=== PATIENT | male | born 1995 | race Caucasian/White ===

== ENCOUNTER 2016-07-23 02:44 | Emergency (ER) | payer BC, OTHER ==
[~2016-07-23] VITALS: Ht 180.3 cm; Wt 84.0 kg
[2016-07-23 02:44] VITALS: O2SAT 98
[2016-07-23 02:54] VITALS: TEMP 36.4; Ht 180.3 cm; Wt 84.0 kg
--- NOTE | 2016-07-23 03:02 | EMERGENCY ROOM VISIT NOTE ---
History Report prepared by Yosvanyibkaylah: Rosio Faith Under the Supervision of: Dr. Elizabeth Herrera M.D. First contact with patient: 02:46 Chief Complaint: CHEST PAIN Stated Complaint: CHEST PAIN History of Present Illness The patient is a 20 year old male who presents to the Emergency Room with complaints of persistent central chest pain that began this morning. The patient states that the pain began suddenly when he stood up and is described as sharp. He also complains of dizziness. The patient had a similar pain about 8 -9 years ago and had an unrevealing work-up. He denies any heavy lifting at work. Denies cough, cold, fever, abdominal pain or other complaints. The patient has diabetes and uses an insulin pen. His blood sugars have been normal recently. His sugar about 4 hours ago was around 170. He ate some peanut butter crackers before he went to work. Source of History: patient Onset: this morning Position: chest (central) Quality: sharp Timing: other (persistent) Associated Symptoms: No cough, No fevers Note: Other symptoms: dizziness Review of Systems See HPI for pertinent positives & negatives. A total of 10 systems reviewed and were otherwise negative. Past Medical & Surgical Medical Problems: (1) Diabetes Family History No pertinent family history stated. Social History Occupation Status: employed Current/Historical Medications Scheduled Insulin Detemir (Levemir Flextouch), 30 UNITS SQ HS Insulin Lispro (Human) (Humalog Kwikpen), SQ AC Omeprazole (Prilosec), 20 MG PO DAILY Physical Exam Vital Signs Date Time Temp Pulse Resp B/P Pulse Ox O2 Delivery O2 Flow Rate FiO2 07/23/16 06:37 82 20 148/71 97 Room Air 07/23/16 06:06 80 07/23/16 05:22 84 18 142/71 98 Room Air 07/23/16 04:40 66 18 123/74 99 Room Air 07/23/16 02:54 98 Room Air 07/23/16 02:54 36.4 60 18 144/96 98 Room Air 07/23/16 02:48 68 07/23/16 02:44 98 Room Air Physical Exam Vital signs reviewed. General: Pale-appearing 20 year old male, in no significant distress. HEENT: No scleral icterus, PERRLA, neck supple. Atraumatic. Cardiovascular: Regular rate and rhythm, no extra sounds. Pulmonary: Clear to auscultation bilaterally, normal work of breathing. Abdomen: Soft, nontender, nondistended, positive bowel sounds. Musculoskeletal: Atraumatic, no peripheral edema. Neurologic: Patient awake alert and oriented x 3, full strength in all 4 extremities. Cranial nerves 2 through 12 grossly intact. Skin: Warm, dry, no rash Medical Decision & Procedures ER Provider Diagnostic Interpretation: Chest x-ray per my interpretation: No infiltrate, no failure, no pneumothorax. Radiology results as stated below per my review and radiologist interpretation: US RUQ: No gallstones. No evidence of GB wall thickening or pericholecystic fluid. No biliary dilation. Liver, right kidney, and visualized pancreas unremarkable. No free fluid. Laboratory Results 07/23/16 03:45 Red Blood Count 5.23, Mean Corpuscular Volume 84.5, Mean Corpuscular Hemoglobin 30.2, Mean Corpuscular Hemoglobin Concent 35.7, Mean Platelet Volume 10.8, Neutrophils (%) (Auto) 84.4, Lymphocytes (%) (Auto) 7.9, Monocytes (%) (Auto) 6.8, Eosinophils (%) (Auto) 0.6, Basophils (%) (Auto) 0.1, Neutrophils # (Auto) 10.46, Lymphocytes # (Auto) 0.98, Monocytes # (Auto) 0.84, Eosinophils # (Auto) 0.07, Basophils # (Auto) 0.01 07/23/16 03:45 Test 07/23/16 03:02 07/23/16 03:45 07/23/16 04:05 Bedside Glucose 123 mg/dl (70-99) White Blood Count 12.38 K/uL (4.8-10.8) Red Blood Count 5.23 M/uL (4.7-6.1) Hemoglobin 15.8 g/dL (14.0-18.0) Hematocrit 44.2 % (42-52) Mean Corpuscular Volume 84.5 fL (80-100) Mean Corpuscular Hemoglobin 30.2 pg (25-34) Mean Corpuscular Hemoglobin Concent 35.7 g/dl (32-36) Platelet Count 191 K/uL (130-400) Mean Platelet Volume 10.8 fL (7.4-10.4) Neutrophils (%) (Auto) 84.4 % Lymphocytes (%) (Auto) 7.9 % Monocytes (%) (Auto) 6.8 % Eosinophils (%) (Auto) 0.6 % Basophils (%) (Auto) 0.1 % Neutrophils # (Auto) 10.46 K/uL (1.4-6.5) Lymphocytes # (Auto) 0.98 K/uL (1.2-3.4) Monocytes # (Auto) 0.84 K/uL (0.11-0.59) Eosinophils # (Auto) 0.07 K/uL (0-0.5) Basophils # (Auto) 0.01 K/uL (0-0.2) RDW Standard Deviation 36.8 fL (36.4-46.3) RDW Coefficient of Variation 12.0 % (11.5-14.5) Immature Granulocyte % (Auto) 0.2 % Immature Granulocyte # (Auto) 0.02 K/uL (0.00-0.02) Anion Gap 10.0 mmol/L (3-11) Est Creatinine Clear Calc Drug Dose 115.0 ml/min Estimated GFR () 112.2 Estimated GFR (Non- 96.8 BUN/Creatinine Ratio 13.5 (10-20) Calcium Level 9.5 mg/dl (8.5-10.1) Total Bilirubin 1.5 mg/dl (0.2-1) Direct Bilirubin 0.5 mg/dl (0-0.2) Aspartate Amino Transf (AST/SGOT) 232 U/L (15-37) Alanine Aminotransferase (ALT/SGPT) 124 U/L (12-78) Alkaline Phosphatase 96 U/L (45-117) Total Creatine Kinase 183 U/L (39-308) Creatine Kinase MB 0.9 ng/ml (0.5-3.6) Creatine Kinase MB Ratio 0.5 (0-3.0) Total Protein 7.9 gm/dl (6.4-8.2) Albumin 4.5 gm/dl (3.4-5.0) Amylase Level 50 U/L (25-115) Lipase 76 U/L (73-393) Bedside Troponin I 0.000 ng/ml (0-0.045) Laboratory results per my review. ECG Indication: chest pain Rate (beats per minute): 67 Rhythm: sinus with SA Findings: no acute ischemic change, other (rightward axis) ED Course 0252: Past medical records reviewed. The patient was evaluated in room B9. A complete history and physical examination was performed. 0622: Upon reevaluation, the patient was resting comfortably and hemodynamically stable. I discussed findings with the patient. He verbalized agreement of the treatment plan. The patient was discharged home. Medical Decision Differential diagnosis: Acute coronary syndrome, pulmonary embolus, aortic dissection, musculoskeletal pain, pneumonia, pleural effusion, pneumothorax. This patient was evaluated and appeared to be in no significant distress. IV access was obtained and laboratory work was drawn. Patient was placed on the regional facilities manager. EKG reveals no evidence of acute ischemic change. Chest x- ray is negative. Laboratory work reveals a negative d-dimer and troponin. Patient's white blood cell count is mildly elevated along with his total bilirubin and AST/ALT. An ultrasound of right upper quadrant was performed and is negative. The patient was reassured. Patient was advised to follow-up with his primary care physician regarding the elevated liver enzymes this week. He will begin Prilosec 20 mg daily. Patient will return to the ER for worsening of symptoms or any medical concerns. Impression Primary Impression: Epigastric abdominal pain Additional Impression: Elevated liver enzymes Scribe Attestation The scribe's documentation has been prepared under my direction and personally reviewed by me in its entirety. I confirm that the note above accurately reflects all work, treatment, procedures, and medical decision making performed by me. Departure Information Dispostion Home / Self-Care Prescriptions Omeprazole (PRILOSEC) 20 Mg Cap 20 MG PO DAILY for 30 Days, #30 CAP Prov: Elizabeth Herrera M.D. 07/23/16 Referrals Pablito Conte PA-C (PCP) Patient Instructions My [facility] Additional Instructions Diagnosis: Epigastric abdominal pain, elevated liver enzymes Please follow-up with your physician this week for reevaluation of your liver enzymes. Avoid any alcohol or Tylenol. Drink plenty of clear fluids. Prilosec 20 mg daily for 30 days. Return to the ER for worsening of symptoms or any medical concerns. Problem Qualifiers
[2016-07-23 04:06] LABS: BASO % 0.1 %; BASO ABS # 0.01 K/uL (0-0.2); COMPLETE YES; EOS % 0.6 %; HEMATOCRIT 44.2 % (42-52); IG% 0.2 %; LYMPH % 7.9 %; LYMPH ABS # 0.98 K/uL (1.2-3.4); MEAN CELL VOLUME 84.5 fL (80-100); MEAN CORPUSCULAR HEMOGLOBIN 30.2 pg (25-34); MEAN CORPUSCULAR HGB CONC 35.7 g/dl (32-36); MEAN PLATELET VOLUME 10.8 fL (7.4-10.4); MONO % 6.8 %; NEUT % 84.4 %; PLATELET COUNT 191 K/uL (130-400); RED BLOOD COUNT 5.23 M/uL (4.7-6.1); WHITE BLOOD COUNT 12.38 K/uL (4.8-10.8)
[2016-07-23 04:26] LABS: BUN/CREATININE RATIO 13.5 (10-20); CALCIUM 9.5 mg/dl (8.5-10.1); CREATININE 1.1 mg/dl (0.60-1.40); POTASSIUM 3.9 mmol/L (3.5-5.1)
[2016-07-23 04:31] LABS: CKMB/CK RATIO 0.5 (0-3.0)
[2016-07-23] MEDS ORDERED: INSU100I2 SQ (04:37)
[2016-07-23] MEDS ORDERED: INSU3INJ3 SQ (04:39)
[2016-07-23 05:31] LABS: AMYLASE 50 U/L (25-115)
[2016-07-23 06:37] VITALS: BP 148/71; PULSE 82; O2SAT 97
[2016-07-23] MEDS ORDERED: OMEP20CA9 PO (06:42)
--- NOTE | 2016-07-23 07:10 | DIAGNOSTIC IMAGING REPORT ---
SINGLE VIEW CHEST CLINICAL HISTORY: Atypical chest pain. FINDINGS: An AP, portable, upright chest radiograph is obtained. No prior studies are available for comparison at the time of dictation. The examination is mildly degraded by portable technique and patient rotation. The cardiomediastinal silhouette is unremarkable. The lungs and pleural spaces are clear. No pneumothorax is seen. The bony thorax is grossly intact. IMPRESSION: No active disease in the chest. Electronically signed by: Marc Subramanian M.D. 07/23/2016 7:08 AM Dictated Date/Time: 07/23/2016 7:08 AM
--- NOTE | 2016-07-23 08:07 | DIAGNOSTIC IMAGING REPORT ---
ABDOMINAL ULTRASOUND, RIGHT UPPER QUADRANT HISTORY: Epigastric pain. Elevated liver enzymes. COMPARISON: None. FINDINGS: Liver morphology is normal. There is no biliary ductal dilatation. No gallstones are identified. The pancreatic body is normal. The head and tail are obscured. There is no right hydronephrosis. IMPRESSION: 1. No significant abnormality identified within the right upper quadrant. 2. Partially obscured pancreas. Electronically signed by: Jose Alberto Gu M.D. 07/23/2016 8:06 AM Dictated Date/Time: 07/23/2016 8:05 AM
== END 2016-07-23 06:49 | disposition home or self-care (01) ==
LOC: C.EDB 02:44 → EDBD 02:44 → C.EDB 06:49
DX: R10.13 Epigastric pain (principal); R79.89 Other specified abnormal findings of blood chemistry; E11.9 Type 2 diabetes mellitus without complications; Z79.4 Long term (current) use of insulin; Z79.899 Other long term (current) drug therapy